=== PATIENT | female | born 1970 | race Caucasian/White ===

== ENCOUNTER 2018-04-27 23:34 | Emergency (ER) | payer BC ==
[~2018-04-27 23:34] MED LIST: ALB18R INH; ESTR1PAT66 TD; ESTR1PAT72 TD; PROG200C16 PO; ROBC PO
[2018-04-27] MEDS ORDERED: LEVO25TA57 PO (23:53)
--- NOTE | 2018-04-27 23:57 | ER Report ---
History and Physical Time Seen By MD: 23:57 Hx. of Stated Complaint: UPPER ABDOMINAL PAIN STARTED ABOUT 7PM TONIGHT. HPI/ROS CHIEF COMPLAINT: abdominal pain HISTORY OF PRESENT ILLNESS: This is a 47 year old female. She is having epigastric to mid abdomen abdominal pain. Pain started at about 1900 tonight. Seemed to steadily worsen. Nothing seemed to make it worse or better. She does have some radiation to the back and somewhat to the right. No fevers. No urinary problems and no bowel problems. Having some nausea. Has not identified any link to diet, diet is very limited at this time due to celiac and other autoimmune conditions. No grains, dairy. REVIEW OF SYSTEMS: Constitutional: No fever or chills. Eyes: No vision changes. ENT: No sore throat. No congestion. Cardiovascular: No chest pain. No palpitations. Respiratory: No cough. Gastrointestinal: As above. Genitourinary: No dysuria. No frequency Musculoskeletal: No extremity pain. Skin: No rashes. Neurological: No numbness. No weakness. Allergies: Coded Allergies: gluten (Verified Allergy, Intermediate, 04/27/18) Home Meds Active Scripts Hydrocodone Bit/Acetaminophen (HYDROCODON-ACETAMINOPHEN 5-325) 1 Each Tablet, 1 EACH PO Q4H PRN for PAIN, #6 TAB 0 Refills Prov:EB WILLIAMSON MD 04/28/18 Ondansetron (ZOFRAN ODT) 4 Mg Tab.rapdis, 4 MG PO Q6H PRN for NAUSEA/VOMITING, #10 TAB.NATALIE 0 Refills Prov:EB WILLIAMSON MD 04/28/18 Albuterol Sulfate (VENTOLIN HFA) 18 Gm Inh, 2 PUFF INH Q4-6H for tightness/ wheezing, #1 INH 1 Refill Prov:REILLY MCDONALD MD 07/10/15 Reported Medications Levothyroxine Sodium (SYNTHROID) 25 Mcg Tablet, 25 MCG PO QDAY 04/27/18 Estradiol (VIVELLE-DOT 0.1 MG) 1 Each Patch.tdsw, 1 EACH TD 2XW, PATCH.BWK 07/10/15 Progesterone,Micronized (PROMETRIUM) 200 Mg Capsule, 1 CAP PO QHS, CAPSULE 08/01/14 Discontinued Scripts Guaifenesin/Codeine (GUAIFENESIN-CODEINE SYRUP) 5 Ml Syrp, 1-2 TSP PO QID PRN for cough, #4 OZ 0 Refills Prov:REILLY MCDONALD MD 07/10/15 Reviewed Nurses Notes: Yes Smoking Status: Never Smoker Constitutional Vital Sign - Last 24 Hours 04/27/18 04/27/18 04/28/18 04/28/18 23:48 23:48 00:30 00:45 Temp 98.0 Pulse 68 67 Resp 16 B/P (MAP) 120/79 (93) 120/79 97/86 (90) Pulse Ox 94 O2 Delivery Room Air 04/28/18 04/28/18 04/28/18 04/28/18 02:00 02:30 03:00 03:30 Pulse 75 77 B/P (MAP) 110/73 (85) 114/66 (82) 106/60 (75) 105/59 (74) Pulse Ox 94 93 90 93 Intake and Output 0 04/27/18 04/27/18 04/28/18 15:00 23:00 07:00 Intake Total 1000 ml Balance 1000 ml Physical Exam General Appearance: The patient is alert. Having some acute distress due to pain. Non-toxic in appearance. Eyes: Pupils are equal, round. No pallor, injection or icterus. Extraocular movements are intact. ENT: Mucous membranes are moist. Normal oral mucosa. Respiratory: Lungs are clear to auscultation. Cardiovascular: Regular rate and rhythm. No murmurs, gallops or rubs. No edema. Gastrointestinal: Abdomen is soft, tender in the epigastric and carolyn-umbilical area. no pain in the back or CVA. Nondistended. No rebound or guarding. No masses or organomegaly. Normal active bowel sounds. Neurological: Alert and oriented x3. No focal neurologic deficits Skin: Warm and dry. Musculoskeletal: No pain with palpation of the back and spine. DIFFERENTIAL DIAGNOSIS: After history and physical exam, differential diagnosis was considered for epigastric pain including but not limited to biliary colic, cholecystitis, peptic ulcer disease, pancreatitis, and gastroenteritis. Medical Decision Making Data Points Result Diagram: 04/28/18 0017 04/28/18 001 Laboratory Hematology Test 04/28/18 00:17 Red Blood Count 4.38 M/uL (4.17-5.56) Mean Corpuscular Volume 94.6 fL (80.0-96.0) Mean Corpuscular Hemoglobin 32.4 pg (26.0-33.0) Mean Corpuscular Hemoglobin Concent 34.3 g/dL (32.0-36.0) Red Cell Distribution Width 13.3 % (11.5-14.5) Mean Platelet Volume 9.7 fL (7.2-11.1) Neutrophils (%) (Auto) 76.6 % (39.4-72.5) Lymphocytes (%) (Auto) 14.0 % (17.6-49.6) Monocytes (%) (Auto) 3.2 % (4.1-12.4) Eosinophils (%) (Auto) 5.6 % (0.4-6.7) Basophils (%) (Auto) 0.6 % (0.3-1.4) Nucleated RBC Relative Count (auto) 0.1 /100WBC Neutrophils # (Auto) 7.3 K/uL (2.0-7.4) Lymphocytes # (Auto) 1.3 K/uL (1.3-3.6) Monocytes # (Auto) 0.3 K/uL (0.3-1.0) Eosinophils # (Auto) 0.5 K/uL (0.0-0.5) Basophils # (Auto) 0.1 K/uL (0.0-0.1) Nucleated RBC Absolute Count (auto) 0.01 K/uL Sodium Level 136 mmol/L (137-145) Potassium Level 4.0 mmol/L (3.5-5.0) Chloride Level 105 mmol/L (98-107) Carbon Dioxide Level 23 mmol/L (22-31) Blood Urea Nitrogen 18 mg/dl (7-18) Creatinine 0.90 mg/dl (0.52-1.04) Glomerular Filtration Rate Calc > 60.0 Random Glucose 136 mg/dl (75-110) Calcium Level 9.6 mg/dl (8.4-10.2) Total Bilirubin 0.2 mg/dl (0.2-1.3) Aspartate Amino Transf (AST/SGOT) 40 U/L (0-35) Alanine Aminotransferase (ALT/SGPT) 49 U/L (0-56) Alkaline Phosphatase 71 U/L (0-126) Total Protein 7.4 g/dl (6.3-8.2) Albumin 4.2 g/dl (3.5-5.0) Amylase Level 100 U/L (0-110) Lipase 354 U/L (23-300) Human Chorionic Gonadotropin, Qual Negative (NEGATIVE) Chemistry Test 04/28/18 00:17 White Blood Count 9.5 k/uL (4.5-11.0) Red Blood Count 4.38 M/uL (4.17-5.56) Hemoglobin 14.2 g/dL (12.0-16.0) Hematocrit 41.4 % (34.0-47.0) Mean Corpuscular Volume 94.6 fL (80.0-96.0) Mean Corpuscular Hemoglobin 32.4 pg (26.0-33.0) Mean Corpuscular Hemoglobin Concent 34.3 g/dL (32.0-36.0) Red Cell Distribution Width 13.3 % (11.5-14.5) Platelet Count 214 K/uL (150-450) Mean Platelet Volume 9.7 fL (7.2-11.1) Neutrophils (%) (Auto) 76.6 % (39.4-72.5) Lymphocytes (%) (Auto) 14.0 % (17.6-49.6) Monocytes (%) (Auto) 3.2 % (4.1-12.4) Eosinophils (%) (Auto) 5.6 % (0.4-6.7) Basophils (%) (Auto) 0.6 % (0.3-1.4) Nucleated RBC Relative Count (auto) 0.1 /100WBC Neutrophils # (Auto) 7.3 K/uL (2.0-7.4) Lymphocytes # (Auto) 1.3 K/uL (1.3-3.6) Monocytes # (Auto) 0.3 K/uL (0.3-1.0) Eosinophils # (Auto) 0.5 K/uL (0.0-0.5) Basophils # (Auto) 0.1 K/uL (0.0-0.1) Nucleated RBC Absolute Count (auto) 0.01 K/uL Glomerular Filtration Rate Calc > 60.0 Calcium Level 9.6 mg/dl (8.4-10.2) Total Bilirubin 0.2 mg/dl (0.2-1.3) Aspartate Amino Transf (AST/SGOT) 40 U/L (0-35) Alanine Aminotransferase (ALT/SGPT) 49 U/L (0-56) Alkaline Phosphatase 71 U/L (0-126) Total Protein 7.4 g/dl (6.3-8.2) Albumin 4.2 g/dl (3.5-5.0) Amylase Level 100 U/L (0-110) Lipase 354 U/L (23-300) Human Chorionic Gonadotropin, Qual Negative (NEGATIVE) EKG/Imaging Imaging CT of the abdomen and pelvis with contrast: Indication: Epigastric pain. Technique: Helical CT was performed through the abdomen and pelvis following IV contrast enhancement with 75 cc of Isovue-370. Multiplanar reconstructions are reviewed. One of the following dose optimization techniques was utilized in the performance of this exam: Automated exposure control; adjustment of the mA and/or kV according to the patient's size; or use of an iterative reconstruction technique. Specific details can be referenced in the facility's radiology CT exam operational policy. Comparison: None. Lower lung [place]: No parenchymal or pleural abnormality is identified. Liver: Normal in size, shape, and density. There is uniform enhancement of the venous structures. Gallbladder/biliary tree: The gallbladder is normal in size and homogeneous in density. The bile ducts are normal in caliber. Pancreas: Normal in size, shape, and density. There are no signs of peripancreatic inflammation or fluid. Spleen: Normal in size, shape, and density. Adrenal glands: Within normal limits. Kidneys/urinary bladder: The kidneys are normal in size, shape, and density. There are no signs of urinary tract calculus or obstruction. The bladder appears homogeneous and unremarkable. Intestinal structures: Unremarkable, as visualized. There are no signs of obstruction or focal inflammatory changes. The appendix appears normal. There is no evidence of diverticular disease. Pelvis: The uterus and adnexal structures are unremarkable, as visualized. There is no inflammation or fluid in the pelvis. Aorta and vascular structures: Within normal limits. Ascites or fluid collections: None seen. Skeletal structures: Well mineralized and intact. Impression: No acute process is identified in the abdomen or pelvis. Report Dictated By: Jermaine Reyna MD at 04/28/2018 1:48 AM Limited ultrasound of the abdomen: Indication: Upper abdominal pain. Technique: Routine imaging, with Doppler. Comparison: None. Gallbladder: Normal in size and shape. No stones or sludge are identified in the lumen. There is no thickening of the wall. Biliary tree: Normal in caliber. The CBD measures 4 mm. Liver: Normal in size, shape, and echogenicity. The right lobe measures 16.8 cm. The portal vein is patent with antegrade flow. Pancreas: Well visualized and unremarkable. Spleen: Not evaluated. Kidneys: The right kidney measures 10.5 x 4.8 x 4.5 cm. A small cyst is present at the upper pole. There is a tiny echogenic focus near the lower pole, compatible with nonobstructing calculus. There is no dilatation of the collecting structures. The left kidney was not evaluated. Aorta and IVC: Unremarkable, as visualized. Ascites: None seen. IMPRESSION: The gallbladder, liver, and pancreas appear unremarkable. There appears to be a tiny nonobstructing calculus in the right kidney. There are no signs of acute obstruction. Report Dictated By: Jermaine Reyna MD at 04/28/2018 3:27 AM ED Course/Re-evaluation Clinical Indication for ER IV: Hydration, IV Access ED Course Initial labs revealed a mild elevation of the lipase with a negative amylase. Li lukasz function tests were otherwise unremarkable. White count was also negative. CT scan did not show any acute abnormality. Based on the elevated lipase and what appears to be a mild case of pancreatitis and with her history of having some sludge on ultrasound in the past, we repeated the ultrasound. This was normal without any problems. After the testing was done, and described the situation and what pancreatitis is as well as dietary changes. She already has fairly strict dietary regimen based on her celiac disease and other autoimmune conditions. We talked about bland diet options that she can use as well as clear liquids for the next 24 hours and then advancing to regular diet slowly as she is feeling better. Decision to Disposition Date: Apr 28, 2018 Decision to Disposition Time: 04:01 Depart Departure Latest Vital Signs Vital Signs Date Time Temp Pulse Resp B/P (MAP) Pulse Ox O2 Delivery O2 Flow Rate FiO2 04/28/18 03:30 105/59 (74) 93 04/28/18 03:00 77 04/27/18 23:48 98.0 16 Room Air Impression: Primary Impression: Pancreatitis Condition: Improved Disposition: HOME OR SELF-CARE Referrals: REILLY MCDONALD MD (PCP) New Scripts Hydrocodone Bit/Acetaminophen (HYDROCODON-ACETAMINOPHEN 5-325) 1 Each Tablet 1 EACH PO Q4H PRN for PAIN, #6 TAB 0 Refills Prov: EB WILLIAMSON MD 04/28/18 Ondansetron (ZOFRAN ODT) 4 Mg Tab.rapdis 4 MG PO Q6H PRN for NAUSEA/VOMITING, #10 TAB.NATALIE 0 Refills Prov: EB WILLIAMSON MD 04/28/18 Patient Instructions: B.R.A.T.Diet, Pancreatitis (ED) Additional Instructions: Clear liquids and simple bland carbohydrates initially. Slowly advance to your regular diet as pain improves. Take Tylenol as needed for pain. You can use Lortab 5/325, one every 4 hours as needed for severe pain. You can use Zofran 4mg, one every 6 hours as needed for nausea. Problem Qualifiers Primary Impression: Pancreatitis Chronicity: acute Pancreatitis type: unspecified pancreatitis type Acute pancreatitis complication: no infection or necrosis Qualified Codes: K85.90 - Acute pancreatitis without necrosis or infection, unspecified EB WILLIAMSON MD Apr 27, 2018 23:57
[2018-04-28] MEDS ORDERED: NS(*) 0.9% 1000 ML BAG 1,000 ML IV ONE (00:08)
[2018-04-28] MEDS ORDERED: IOPAMIDOL 76% 75 ML INFUS BTL 75 ML ONE (00:26)
[2018-04-28 00:35] LABS: PLATELET COUNT, AUTOMATED 214 K/uL (150-450)
--- NOTE | 2018-04-28 01:59 | RADIOLOGY IMAGING REPORT ---
FACILITY: [facility] PATIENT NAME: Theresa Little : 1970 MR: [id number] V: [id number] EXAM DATE: ORDERING PHYSICIAN: EB WILLIAMSON TECHNOLOGIST: Location: [facility] - [place] Patient: Theresa Little : 1970 Visit/Account:[id number] Date of Sevice: 04/28/2018 CT of the abdomen and pelvis with contrast: Indication: Epigastric pain. Technique: Helical CT was performed through the abdomen and pelvis following IV contrast enhancement with 75 cc of Isovue-370. Multiplanar reconstructions are reviewed. One of the following dose optimization techniques was utilized in the performance of this exam: Autom ated exposure control; adjustment of the mA and/or kV according to the patient's size; or use of an i terative reconstruction technique. Specific details can be referenced in the facility's radiology CT exam operational policy. Comparison: None. Lower lung [place]: No parenchymal or pleural abnormality is identified. Liver: Normal in size, shape, and density. There is uniform enhancement of the venous structures. Gallbladder/biliary tree: The gallbladder is normal in size and homogeneous in density. The bile duct s are normal in caliber. Pancreas: Normal in size, shape, and density. There are no signs of peripancreatic inflammation or fl uid. Spleen: Normal in size, shape, and density. Adrenal glands: Within normal limits. Kidneys/urinary bladder: The kidneys are normal in size, shape, and density. There are no signs of ur inary tract calculus or obstruction. The bladder appears homogeneous and unremarkable. Intestinal structures: Unremarkable, as visualized. There are no signs of obstruction or focal inflam matory changes. The appendix appears normal. There is no evidence of diverticular disease. Pelvis: The uterus and adnexal structures are unremarkable, as visualized. There is no inflammation o r fluid in the pelvis. Aorta and vascular structures: Within normal limits. Ascites or fluid collections: None seen. Skeletal structures: Well mineralized and intact. Impression: No acute process is identified in the abdomen or pelvis. Report Dictated By: Jermaine Reyna MD at 04/28/2018 1:48 AM Report E-Signed By: Jermaine Reyna MD at 04/28/2018 1:56 AM WSN:[id number]
[2018-04-28 03:30] VITALS: BP 105/59
--- NOTE | 2018-04-28 03:36 | RADIOLOGY IMAGING REPORT ---
FACILITY: [facility] PATIENT NAME: Theresa Little : 1970 MR: [id number] V: [id number] EXAM DATE: ORDERING PHYSICIAN: EB WILLIAMSON TECHNOLOGIST: [place] [facility] [place] Patient: Theresa Little : 1970 Visit/Account:[id number] Date of Sevice: 04/28/2018 Limited ultrasound of the abdomen: Indication: Upper abdominal pain. Technique: Routine imaging, with Doppler. Comparison: None. Gallbladder: Normal in size and shape. No stones or sludge are identified in the lumen. There is no t hickening of the wall. Biliary tree: Normal in caliber. The CBD measures 4 mm. Liver: Normal in size, shape, and echogenicity. The right lobe measures 16.8 cm. The portal vein is p atent with antegrade flow. Pancreas: Well visualized and unremarkable. Spleen: Not evaluated. Kidneys: The right kidney measures 10.5 x 4.8 x 4.5 cm. A small cyst is present at the upper pole. Th ere is a tiny echogenic focus near the lower pole, compatible with nonobstructing calculus. There is no dilatation of the collecting structures. The left kidney was not evaluated. Aorta and IVC: Unremarkable, as visualized. Ascites: None seen. IMPRESSION: The gallbladder, liver, and pancreas appear unremarkable. There appears to be a tiny nonobstructing calculus in the right kidney. There are no signs of acute o bstruction. Report Dictated By: Jermaine Reyna MD at 04/28/2018 3:27 AM Report E-Signed By: Jermaine Reyna MD at 04/28/2018 3:34 AM WSN:[id number]
[2018-04-28] MEDS ORDERED: ONDANSETRON 4 MG ODT TH SL ONE (03:55)
[2018-04-28] MEDS ORDERED: ACET/HYDROC 5/325MG TH ER ONLY 2 TAB/BOTTLE PO ONE (03:55)
[2018-04-28] MEDS ORDERED: LOR5/325 PO (04:03)
[2018-04-28] MEDS ORDERED: ONDA4TAB PO (04:03)
== END 2018-04-28 04:20 | disposition home or self-care (01) ==
LOC: ER 23:53
DX: K85.90 Acute pancreatitis without necrosis or infection, unspecified (principal)
CPT/HCPCS: 74177; 76705; 81001; 82150; 83690; 84703; 85025; 96360; 96361; 99284; J7030; Q9967; 82040; 82247; 82310; 82374; 82435; 82565; 82947; 84075; 84132; 84155; 84295; 84450; 84460; 84520